=== PATIENT | female | born 1970 | race Caucasian/White ===

== ENCOUNTER 2018-05-18 20:18 | Emergency (ER) | payer MEDICAID ==
[2018-05-18] MEDS: KETOROLAC 30 MG/ML INJ. IM (20:55)
== END 2018-05-18 21:17 | disposition home or self-care (01) ==
LOC: ER 21:17
DX: M79.671 Pain in right foot (principal)
CPT/HCPCS: 73630; 96372; 99284-25; J1885

== ENCOUNTER 2018-05-20 11:56 | Emergency (ER) | payer SELFPAY, MEDICAID ==
[2018-05-20] MEDS: KETOROLAC 60 MG/2 ML INJ. IM (12:31)
== END 2018-05-20 13:00 | disposition home or self-care (01) ==
LOC: ER 11:56
DX: M79.671 Pain in right foot (principal); F17.200 Nicotine dependence, unspecified, uncomplicated; Z90.49 Acquired absence of other specified parts of digestive tract; Z90.89 Acquired absence of other organs; Z98.890 Other specified postprocedural states
CPT/HCPCS: 96372; 99283; J1885

== ENCOUNTER 2018-10-13 23:53 | Emergency (ER) | payer SELFPAY ==
[~2018-10-13] VITALS: Ht 175.3 cm; Wt 90.7 kg
[~2018-10-13 23:53] MED LIST: DICL50TA4 PO; METH4TAB2 PO
[2018-10-14] VITALS: BP 115/68
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
[2018-10-14] MEDS ORDERED: LIDOCAINE 4% KIT 4 ML SOLUTION. TP ONE (02:00)
--- NOTE | 2018-10-14 02:23 | RAD ---
CT head without contrast 10/14/2018. Reason for exam: Right-sided head injury. Patient fell. Headache. Noncontrast images were performed. Exposure: One or more of the following individualized dose reduction techniques were utilized for this examination: 1. Automated exposure control 2. Adjustment of the mA and/or kV according to patient size 3. Use of iterative reconstruction technique. There are no available comparison studies. There is no apparent intracranial hemorrhage or abnormal extra-axial fluid collection. No area of abnormal density is seen in the brain. The ventricles and basilar cisterns are normally positioned. Bone windows demonstrate no apparent fracture of the skull or abnormal sinus or mastoid opacification. IMPRESSION: No acute intracranial abnormality. Electronically signed by: Jason Plascencia Jr., MD (10/14/2018 2:19 AM) [facility]
== END 2018-10-14 02:45 | disposition home or self-care (01) ==
LOC: ER 10-14 00:44
DX: S01.01XA Laceration without foreign body of scalp, initial encounter (principal); F17.200 Nicotine dependence, unspecified, uncomplicated; W01.0XXA Fall on same level from slipping, tripping and stumbling without subsequent striking against object, initial encounter; Y93.01 Activity, walking, marching and hiking; Y92.481 Parking lot as the place of occurrence of the external cause; Y99.8 Other external cause status
CPT/HCPCS: 12002; 70450; 99284-25

== ENCOUNTER 2018-10-22 09:32 | Emergency (ER) | payer SELFPAY ==
[~2018-10-22] VITALS: Ht 175.3 cm; Wt 86.2 kg
[2018-10-22 09:40] VITALS: BP 131/70
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
== END 2018-10-22 10:20 | disposition home or self-care (01) ==
LOC: ER 09:32
DX: S01.01XD Laceration without foreign body of scalp, subsequent encounter (principal); X58.XXXD Exposure to other specified factors, subsequent encounter
CPT/HCPCS: 99284

== ENCOUNTER 2018-11-22 00:54 | Emergency (ER) | payer SELFPAY ==
[~2018-11-22] VITALS: Ht 175.3 cm; Wt 77.1 kg
[2018-11-22 00:54] VITALS: BP 94/56
[2018-11-22] MEDS ORDERED: MELO7.5T29 PO (01:24)
[2018-11-22] MEDS ORDERED: HYDR-3164 PO (01:24)
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
[2018-11-22] MEDS ORDERED: KETOROLAC 15 MG/ML VIAL. IV ONE (01:30)
[2018-11-22] MEDS ORDERED: KETOROLAC 15 MG/ML VIAL. IM ONE (02:30)
== END 2018-11-22 02:04 | disposition home or self-care (01) ==
LOC: ER 00:54
DX: T24.212A Burn of second degree of left thigh, initial encounter (principal); T31.0 Burns involving less than 10% of body surface; Z90.49 Acquired absence of other specified parts of digestive tract; Z90.89 Acquired absence of other organs; Z98.890 Other specified postprocedural states; X15.2XXA Contact with hotplate, initial encounter; Y93.89 Activity, other specified; Y92.89 Other specified places as the place of occurrence of the external cause; Y99.0 Civilian activity done for income or pay
CPT/HCPCS: 96372; 99283; J1885

== ENCOUNTER 2018-12-01 22:54 | Emergency (ER) | payer SELFPAY ==
[~2018-12-01 22:54] MED LIST changes: +HYDR-3164 PO; +MELO7.5T29 PO
[2018-12-01] MEDS ORDERED: METOCLOPRAMIDE HCL 10 MG/2 ML VIAL. ONE (23:45)
[2018-12-02] MEDS ORDERED: KETOROLAC 15 MG/ML VIAL. ONE (00:18)
[2018-12-02] MEDS ORDERED: traMADol 50 MG TABLET ONE (01:07)
[2018-12-02] MEDS ORDERED: POTASSIUM CHLORIDE 20 MEQ TABLET.ER. PO ONE (04:12)
[2018-12-02] MEDS ORDERED: POTA20TA82 PO (04:45)
[2018-12-02] MEDS ORDERED: METO10TA81 PO (04:45)
[2018-12-02] MEDS ORDERED: METR500T PO (04:49)
[2018-12-02 07:26] LABS: ALBUMIN 3.1 g/dL (3.4-5.0); CALCIUM 8.9 mg/dL (8.5-10.1); CREATININE 0.7 mg/dL (0.6-1.0); DIRECT BILIRUBIN 0.1 mg/dL (0.0-0.2); GFR 88.9; TOTAL BILIRUBIN 0.5 mg/dL (0.2-1.0); TOTAL PROTEIN 6.8 g/dL (6.4-8.2)
[2018-12-02 07:32] LABS: INFLUENZA A PATIENT NEGATIVE (NEGATIVE); INFLUENZA B PATIENT NEGATIVE (NEGATIVE)
[2018-12-02 07:38] LABS: BASO # 0.1 x10^3/uL (0.0-0.2); BASO % 1 % (0-3); EOS % 1 % (0-3); HEMATOCRIT 43.6 % (36.0-47.0); HEMOGLOBIN 14.9 g/dL (12.0-15.5); LYMPH # 1.7 x10^3/uL (1.0-4.8); LYMPH % 29 % (24-48); MEAN CORPUSCULAR HEMOGLOBIN 35 pg (25-35); MEAN CORPUSCULAR HGB CONC 34 g/dL (31-37); MEAN CORPUSCULAR VOLUME 103 fL (79-100); MONO # 0.3 x10^3/uL (0.0-1.1); MONO % 6 % (0-9); NEUT # 3.6 x10^3uL (1.8-7.7); NEUT % 63 % (31-73); PLATELET COUNT 181 x10^3/uL (140-400); RED BLOOD COUNT 4.24 x10^6/uL (3.50-5.40); WHITE BLOOD COUNT 5.7 x10^3/uL (4.0-11.0)
[2018-12-02 07:39] LABS: COLOR,URINE AMBER; POTASSIUM 2.8 mmol/L (3.5-5.1)
[2018-12-02 07:40] LABS: BACTERIA,URINE 0 /HPF (0-FEW); BILIRUBIN,URINE SMALL (NEG); CLARITY,URINE CLEAR; HYALINE CASTS, URINE FEW /HPF; NITRITE,URINE NEGATIVE (NEG); PH,URINE 5.5; PROTEIN,URINE NEGATIVE (NEG-TRACE); RBC,URINE OCC /HPF (0-2); SQUAMOUS EPITHELIAL CELL,UR MOD /LPF; TRICHOMONAS,URINE PRESENT; WBC,URINE OCC /HPF (0-4)
--- NOTE | 2018-12-02 07:48 | RAD ---
Portable chest, 12/02/2018: HISTORY: Dizziness The heart size and pulmonary vascularity are normal. No pulmonary infiltrate is seen. There is no evidence of pleural fluid. IMPRESSION: No acute cardiopulmonary abnormality is detected. Electronically signed by: Rodri Quick MD (12/02/2018 7:45 AM) [facility]
[2018-12-02 07:53] LABS: U PREG PATIENT NEGATIVE (NEG)
--- NOTE | 2018-12-03 06:39 | EKG ---
[facility] [address] [place] [address] Test Date: 2018-12-01 Test Time: 23:17:09 Pat Name: MIKE SHINE Department: Room: Gender: F Telephone Lineworker: : 1970 Requested By: MADHURI WILSON Order Number: [id number] Reading MD: Zack Love MD Measurements Intervals [place] Rate: 85 P: 56 OR: 168 QRS: 43 QRSD: 82 T: 64 QT: 394 QTc: 469 Interpretive Statements SINUS RHYTHM Electronically Signed On 12-04-2018 13:52:44 COUPLING MACHINE OPERATOR by Zack Love MD
--- NOTE | 2018-12-03 14:55 | RAD ---
CT HEAD INDICATION: Dizziness COMPARISON: 10/14/2018 Exposure: One or more of the following individualized dose reduction techniques were utilized for this examination: 1. Automated exposure control 2. Adjustment of the mA and/or kV according to patient size 3. Use of iterative reconstruction technique TECHNIQUE: 5 mm contiguous axial images were obtained from the skull base to the vertex FINDINGS: No abnormal attenuation within the brain parenchyma. No evidence of acute intracranial hemorrhage. No extra-axial fluid collections. No mass effect or midline shift. Ventricular size is appropriate. Basal cisterns are patent. No fractures identified.Redd-white differentiation is preserved.Globes and orbits are within normal limits. Paranasal sinuses and mastoid air cells are clear. IMPRESSION: No acute intracranial findings. Electronically signed by: Nicola Ponce MD (12/03/2018 2:52 PM) [place] [id number]
== END 2018-12-02 05:20 | disposition home or self-care (01) ==
LOC: ER 22:54
DX: T24.012A Burn of unspecified degree of left thigh, initial encounter (principal); R11.2 Nausea with vomiting, unspecified; E87.6 Hypokalemia; E86.0 Dehydration; A59.9 Trichomoniasis, unspecified; X08.8XXA Exposure to other specified smoke, fire and flames, initial encounter; Y93.89 Activity, other specified; Y92.89 Other specified places as the place of occurrence of the external cause; Y99.8 Other external cause status
CPT/HCPCS: 36415; 70450; 71045; 80048; 80076; 81001; 81025; 83690; 84484; 85025; 87040; 87086; 87804; 93005; 99284-25

== ENCOUNTER 2019-02-01 09:39 | Emergency (ER) | payer SELFPAY ==
[~2019-02-01] VITALS: Ht 175.3 cm; Wt 74.8 kg
[~2019-02-01 09:39] MED LIST changes: +METO10TA81 PO; +METR500T PO; +POTA20TA82 PO
[2019-02-01 10:17] LABS: BILIRUBIN,URINE SMALL (NEG); CLARITY,URINE CLEAR; NITRITE,URINE NEGATIVE (NEG); PH,URINE 5.5; PROTEIN,URINE NEGATIVE (NEG-TRACE)
[2019-02-01 10:24] LABS: AMPHETAMINE/METHAMPHETAMINE NEG (NEG); BARBITURATES NEG (NEG); BENZODIAZEPINES NEG (NEG); CANNABINOIDS POS (NEG); COCAINE NEG (NEG); METHADONE NEG (NEG); OPIATES NEG (NEG); PHENCYCLIDINE NEG (NEG)
[2019-02-01 10:25] LABS: COLOR,URINE YELLOW
[2019-02-01 10:26] LABS: SQUAMOUS EPITHELIAL CELL,UR MANY /LPF
[2019-02-01 10:27] LABS: BACTERIA,URINE MODERATE /HPF (0-FEW); RBC,URINE OCC /HPF (0-2)
--- NOTE | 2019-02-01 10:56 | RAD ---
CT brain without contrast. HISTORY: Dizziness CT scan of brain was done without contrast. There is no intracranial hemorrhage or subdural hematoma. Ventricles are normal in size. There is no mass or shift of the midline. Sinuses are clear. An acute CVA is not identified. IMPRESSION: 1. No intracranial hemorrhage or acute finding noted. RS Compliance Statement: One or more of the following individualized dose reduction techniques were utilized for this examination: 1. Automated exposure control 2. Adjustment of the mA and/or kV according to patient size 3. Use of iterative reconstruction technique Electronically signed by: Surjit Noguera MD (02/01/2019 10:54 AM) [facility]
[2019-02-01] MEDS ORDERED: IV NORMAL SALINE 1000ML BAG 1,000 ML IV ONE (11:15)
[2019-02-01] MEDS ORDERED: cefTRIAXone IV Push 1 GM VIAL. IVP ONE (11:15)
[2019-02-01 11:28] LABS: BASO % 1 % (0-3); EOS % 1 % (0-3); HEMATOCRIT 41.9 % (36.0-47.0); HEMOGLOBIN 14.4 g/dL (12.0-15.5); LYMPH # 1.1 x10^3/uL (1.0-4.8); LYMPH % 22 % (24-48); MEAN CORPUSCULAR HEMOGLOBIN 35 pg (25-35); MEAN CORPUSCULAR HGB CONC 34 g/dL (31-37); MEAN CORPUSCULAR VOLUME 102 fL (79-100); MONO # 0.3 x10^3/uL (0.0-1.1); MONO % 7 % (0-9); NEUT # 3.5 x10^3uL (1.8-7.7); NEUT % 70 % (31-73); PLATELET COUNT 127 x10^3/uL (140-400); RED CELL DISTRIBUTION WIDTH 13.5 % (11.5-14.5)
[2019-02-01 11:41] LABS: CALCIUM 8.4 mg/dL (8.5-10.1); CREATININE 0.6 mg/dL (0.6-1.0); GFR 106.3; POTASSIUM 3.2 mmol/L (3.5-5.1)
[2019-02-01 11:47] LABS: ALBUMIN 2.9 g/dL (3.4-5.0); ALBUMIN/GLOBULIN RATIO 0.9 (1.0-1.7); TOTAL BILIRUBIN 0.6 mg/dL (0.2-1.0); TOTAL PROTEIN 6.3 g/dL (6.4-8.2)
[2019-02-01 12:00] VITALS: BP 123/80
[2019-02-01] MEDS ORDERED: POTASSIUM CHLORIDE 20 MEQ TABLET.ER. PO ONE (12:00)
[2019-02-01] MEDS ORDERED: SULF1TAB24 PO (12:02)
--- NOTE | 2019-02-01 12:03 | PHYS DOC ---
Past Medical History Past Medical History: No Pertinent History Past Surgical History: Appendectomy, Cholecystectomy, Alcohol Use: Occasionally Drug Use: None Adult General Chief Complaint Chief Complaint: Dizziness HPI HPI Patient is a 48 year old female who presents with dizziness and a feeling of fatigue. The patient states that she hasn't felt well for a few days. She has been suffering from an upper respiratory infection. She states when she was at work today she almost fell due to dizziness. She stated that she felt like she was spinning. She denies headache, vision changes or gait changes. She states that the dizziness has resolved. Review of Systems Review of Systems Constitutional: Denies fever or chills [] Eyes: Denies change in visual acuity, redness, or eye pain [] HENT: See history of present illness Respiratory: Denies cough or shortness of breath [] Cardiovascular: No additional information not addressed in HPI [] GI: Denies abdominal pain, nausea, vomiting, bloody stools or diarrhea [] : Denies dysuria or hematuria [] Musculoskeletal: Denies back pain or joint pain [] Integument: Denies rash or skin lesions [] Neurologic: See history of present illness Endocrine: Denies polyuria or polydipsia [] All other systems were reviewed and found to be within normal limits, except as documented in this note. Current Medications Current Medications Current Medications Medications (Trade) Dose Ordered Sig/[facility] Start Time Stop Time Status Last Admin Dose Admin Ceftriaxone Sodium (Rocephin) 1 gm 1X ONCE 02/01/19 11:15 02/01/19 11:16 DC 02/01/19 11:39 1 GM Potassium Chloride (Klor-Con) 40 meq 1X ONCE 02/01/19 12:00 02/01/19 12:02 DC 02/01/19 12:18 40 MEQ Sodium Chloride 1,000 ml @ 1,000 mls/hr 1X ONCE 02/01/19 11:15 02/01/19 12:14 DC 02/01/19 11:39 1,000 MLS/HR Allergies Allergies Allergies Coded Allergies Type Severity Reaction Last Updated Verified No Known Drug Allergies 05/18/18 No Physical Exam Physical Exam Constitutional: Well developed, well nourished, no acute distress, non-toxic appearance. [] HENT: Normocephalic, atraumatic, bilateral tympanic membranes normal, oropharynx moist, no oral exudates, nose normal. [] Eyes: PERRLA, EOMI, conjunctiva normal, no discharge. [] Neck: Normal range of motion, no tenderness, supple, no stridor. [] Cardiovascular:Heart rate regular rhythm, no murmur [] Lungs & Thorax: Bilateral breath sounds clear to auscultation [] Abdomen: Bowel sounds normal, soft, no tenderness, no masses, no pulsatile masses. [] Skin: Warm, dry, no erythema, no rash. [] Back: No tenderness, no CVA tenderness. [] Extremities: No tenderness, no cyanosis, no clubbing, ROM intact, no edema. [] Neurologic: Alert and oriented X 3, normal motor function, normal sensory function, no focal deficits noted, cranial nerves II through XII are grossly intact. [] Psychologic: Affect normal, judgement normal, mood normal. [] Current Patient Data Vital Signs Vital Signs Date Time Temp Pulse Resp B/P (MAP) Pulse Ox O2 Delivery O2 Flow Rate FiO2 02/01/19 12:00 54 19 123/80 (94) 97 Room Air 02/01/19 10:12 97.7 97.7 Lab Values Laboratory Tests Test 02/01/19 10:04 02/01/19 11:18 Urine Collection Type Unknown Urine Color Yellow Urine Clarity Clear Urine pH 5.5 Urine Specific [place] 1.020 Urine Protein Negative mg/dL (NEG-TRACE) Urine Glucose (UA) Negative mg/dL (NEG) Urine Ketones (Stick) Negative mg/dL (NEG) Urine Blood Negative (NEG) Urine Nitrite Negative (NEG) Urine Bilirubin Small (NEG) Urine Urobilinogen Dipstick 1.0 mg/dL (0.2 mg/dL) Urine Leukocyte Esterase Moderate (NEG) Urine RBC Occ /HPF (0-2) Urine WBC 11-20 /HPF (0-4) Urine Squamous Epithelial Cells Many /LPF Urine Bacteria Moderate /HPF (0-FEW) Urine Mucus Marked /LPF Urine Opiates Screen Neg (NEG) Urine Methadone Screen Neg (NEG) Urine Barbiturates Neg (NEG) Urine Phencyclidine Screen Neg (NEG) Urine Amphetamine/Methamphetamine Neg (NEG) Urine Benzodiazepines Screen Neg (NEG) Urine Cocaine Screen Neg (NEG) Urine Cannabinoids Screen Pos (NEG) Urine Ethyl Alcohol Neg (NEG) White Blood Count 5.0 x10^3/uL (4.0-11.0) Red Blood Count 4.10 x10^6/uL (3.50-5.40) Hemoglobin 14.4 g/dL (12.0-15.5) Hematocrit 41.9 % (36.0-47.0) Mean Corpuscular Volume 102 fL (79-100) H Mean Corpuscular Hemoglobin 35 pg (25-35) Mean Corpuscular Hemoglobin Concent 34 g/dL (31-37) Red Cell Distribution Width 13.5 % (11.5-14.5) Platelet Count 127 x10^3/uL (140-400) L Neutrophils (%) (Auto) 70 % (31-73) Lymphocytes (%) (Auto) 22 % (24-48) L Monocytes (%) (Auto) 7 % (0-9) Eosinophils (%) (Auto) 1 % (0-3) Basophils (%) (Auto) 1 % (0-3) Neutrophils # (Auto) 3.5 x10^3uL (1.8-7.7) Lymphocytes # (Auto) 1.1 x10^3/uL (1.0-4.8) Monocytes # (Auto) 0.3 x10^3/uL (0.0-1.1) Eosinophils # (Auto) 0.0 x10^3/uL (0.0-0.7) Basophils # (Auto) 0.0 x10^3/uL (0.0-0.2) Sodium Level 142 mmol/L (136-145) Potassium Level 3.2 mmol/L (3.5-5.1) L Chloride Level 103 mmol/L (98-107) Carbon Dioxide Level 29 mmol/L (21-32) Anion Gap 10 (6-14) Blood Urea Nitrogen 9 mg/dL (7-20) Creatinine 0.6 mg/dL (0.6-1.0) Estimated GFR (Cockcroft-Gault) 106.3 BUN/Creatinine Ratio 15 (6-20) Glucose Level 95 mg/dL (70-99) Calcium Level 8.4 mg/dL (8.5-10.1) L Total Bilirubin 0.6 mg/dL (0.2-1.0) Aspartate Amino Transferase (AST) 25 U/L (15-37) Alanine Aminotransferase (ALT) 21 U/L (14-59) Alkaline Phosphatase 51 U/L (46-116) Total Protein 6.3 g/dL (6.4-8.2) L Albumin 2.9 g/dL (3.4-5.0) L Albumin/Globulin Ratio 0.9 (1.0-1.7) L Ethyl Alcohol Level < 10 mg/dL (0-10) Laboratory Tests 02/01/19 11:18 Laboratory Tests 02/01/19 11:18 EKG EKG [] Radiology/Procedures Radiology/Procedures [] Course & Med Decision Making Course & Med Decision Making Pertinent Labs and Imaging studies reviewed. (See chart for details) []The patient is positive for a UTI. She was given a liter of normal saline and a gram of Rocephin in the emergency department. She will follow up with oral antibiotics. She is to see primary care in 1 week for urine recheck. Dragon Disclaimer Dragon Disclaimer This electronic medical record was generated, in whole or in part, using a voice recognition dictation system. Departure Departure Impression: Primary Impression: UTI (urinary tract infection) Additional Impression: Dizziness Disposition: HOME, SELF-CARE Condition: STABLE Referrals: NO PCP (PCP) Patient Instructions: Dizziness, Urinary Tract Infection Additional Instructions: Take the medication as directed. Increase fluids and rest. Follow-up with primary care provider for recheck in one week. If worsening return to the emergency department. Increase your fluid intake of items which and potassium, such as bananas or orange juice. Scripts Sulfamethoxazole/Trimethoprim (BACTRIM DS TABLET) 1 Each Tablet 1 TAB PO BID for UTI, #14 TAB Prov: RODY FERGUSON APRN 02/01/19 Problem Qualifiers RODY FERGUSON APRN Feb 01, 2019 12:03
--- NOTE | 2019-02-01 16:00 | EKG ---
[facility] [address] [place] [address] Test Date: 2019-02-01 Test Time: 10:30:23 Pat Name: MIKE SHINE Department: Room: Gender: F Banking Paralegal: : 1970 Requested By: RODY FERGUSON Order Number: [id number] Reading MD: Measurements Intervals [place] Rate: 58 P: 47 PA: 184 QRS: 42 QRSD: 78 T: 49 QT: 436 QTc: 432 Interpretive Statements SINUS RHYTHM LEFT ATRIAL ABNORMALITY ABNORMAL ECG RI6.01 Unconfirmed report No previous ECG available for comparison
== END 2019-02-01 12:15 | disposition home or self-care (01) ==
LOC: ER 09:39
DX: R42 Dizziness and giddiness (principal); N39.0 Urinary tract infection, site not specified; J06.9 Acute upper respiratory infection, unspecified; R53.81 Other malaise; Z90.89 Acquired absence of other organs; Z90.49 Acquired absence of other specified parts of digestive tract; Z98.890 Other specified postprocedural states
CPT/HCPCS: 36415; 70450; 80053; 80307; 81001; 85025; 87086; 93005; 96361; 96374; 99285; G0480; J0696; J7030; 99284-25